=== PATIENT | female | born 1980 | race American Indian/Alaskan Native ===

== ENCOUNTER 2020-04-25 08:31 | Outpatient (CLI) | payer OTHER, MEDICAID ==
[2020-04-25 09:07] VITALS: BP 107/70
[2020-04-25] MEDS ORDERED: hydrOXYzine PAMOATE 25 MG CAP PO ONE (11:00)
[2020-04-25] MEDS ORDERED: ACETAMINOPHEN W/CODEINE 300-30 MG TAB PO ONE (11:00)
== END 2020-04-25 11:06 | disposition home or self-care (01) ==
LOC: APU 08:31 → TRG 08:31
PROVIDERS: ATTEND Obstetrics & Gynecology
DX: O47.1 False labor at or after 37 completed weeks of gestation (principal); Z3A.37 37 weeks gestation of pregnancy
CPT/HCPCS: 59025; Q0177